=== PATIENT | male | born 1945 | race Hispanic/Latino ===

== ENCOUNTER 2017-05-17 08:16 | Day surgery (SDC) | payer MEDICARE ==
[2017-05-09 14:17] VITALS: BMI 23.6
[2017-05-17] MEDS ORDERED: Propofol 10 mg/ml Inj (20 ML) ONE (10:55)
[2017-05-17] MEDS ORDERED: Midazolam 2 MG/2 ML VIAL ONE ×2 (10:55→10:56)
[2017-05-17] MEDS ORDERED: Sodium Chloride 0.9% 1,000 ML IV SCH (11:00)
[2017-05-17 13:05] VITALS: BP 134/71; PULSE 72; RESP 16; TEMP 97.5; O2SAT 99
== END 2017-05-17 13:41 | disposition home or self-care (01) ==
LOC: ENDO 08:16
PROVIDERS: ATTEND Internal Medicine Gastroenterology
DX: K63.5 Polyp of colon (principal); K62.1 Rectal polyp; K57.30 Diverticulosis of large intestine without perforation or abscess without bleeding; K64.8 Other hemorrhoids; I10 Essential (primary) hypertension
CPT/HCPCS: 45380; 45381; 45385; 88305; J2250; J2704; J7040 ×2

== ENCOUNTER 2018-05-16 21:19 | Emergency (ER) | payer MEDICARE ==
[2018-05-16 21:47] VITALS: BMI 23.3
[2018-05-16 21:51] VITALS: PULSE 99
[2018-05-16] MEDS ORDERED: Sodium Chloride 0.9% 1,000 ML IV STA (22:26)
--- NOTE | 2018-05-16 22:30 | ED PDOC ---
Arrival/HPI - General Chief Complaint: Abdominal Pain Time Seen by Provider: 05/16/18 22:09 Historian: Patient - History of Present Illness Narrative History of Present Illness (Text): 05/16/18 22:27 73 year old male, with past medical history of hypertension, presents to the ED for evaluation of diffuse abdominal pain, diarrhea, vomiting, fever, chills and headache since 3 pm. Patient informs sudden onset of symptoms this afternoon associated with 3 episodes of diarrhea and 4 episodes of vomiting. Patient informs a low grade fever at home with Tmax of 99.1 F. Patient denies any chest pain, shortness of breath, dizziness, neck pain, back pain or any other complaints. States that abdominal pain is now completely resolved. Time/Duration: 4-6 hours Symptom Onset: Sudden Symptom Course: Unchanged Activities at Onset: Light Context: Home Past Medical History - Provider Review Nursing Documentation Reviewed: Yes - Infectious Disease Hx of Infectious Diseases: None - Cardiac Hx Cardiac Disorders: Yes Hx Hypertension: Yes - Pulmonary Hx Respiratory Disorders: No - Neurological Hx Neurological Disorder: No - HEENT Hx HEENT Disorder: No - Renal Hx Renal Disorder: No - Endocrine/Metabolic Hx Endocrine Disorders: No - Hematological/Oncological Hx Blood Disorders: No - Integumentary Hx Dermatological Disorder: No - Musculoskeletal/Rheumatological Hx Musculoskeletal Disorders: No - Gastrointestinal Hx Gastrointestinal Disorders: No - Genitourinary/Gynecological Hx Genitourinary Disorders: No - Psychiatric Hx Psychophysiologic Disorder: No Hx Substance Use: No - Surgical History Hx Cholecystectomy: Yes - Anesthesia Hx Anesthesia Reactions: No Hx Malignant Hyperthermia: No Family/Social History - Physician Review Nursing Documentation Reviewed: Yes Family/Social History: No Known Family HX Smoking Status: Never Smoked Hx Alcohol Use: No Hx Substance Use: No Allergies/Home Meds Allergies/Adverse Reactions: Allergies No Known Allergies Allergy (Verified 05/16/18 21:47) Home Medications: Home Meds Medication Instructions Recorded Confirmed Amlodipine Besylate/Benazepril 1 tab PO DAILY 05/16/18 05/16/18 [Amlodipine-Benazepril 5-10 mg] Aspirin [Ecotrin] 81 mg PO DAILY 05/16/18 05/16/18 amLODIPine [Norvasc] 5 mg PO DAILY 05/16/18 05/16/18 Review of Systems - Physician Review All systems were reviewed & negative as marked: Yes - Review of Systems Respiratory: absent: SOB Gastrointestinal: Abdominal Pain, Diarrhea, Nausea, Vomiting Musculoskeletal: absent: Back Pain Neurological: Headache Physical Exam - Physical Exam Narrative Physical Exam (Text): 05/16/18 22:31 Constitutional: No acute distress. Head: Normocephalic. Atraumatic. Eyes: PERRL. ENT: Dry mucous membranes. Neck: Supple. Cardiovascular: Regular rate. Chest: No tenderness. Respiratory: Clear to auscultation bilaterally. GI: Soft. Nontender. Nondistended. Back: No CVA tenderness. Musculoskeletal: No tenderness or swelling of extremities. Skin: No rash. Neurologic: Alert, no focal deficit. Vital Signs Reviewed: Yes Vital Signs Temp Pulse Resp BP Pulse Ox 05/16/18 21:50 97.3 F L 99 H 19 173/88 H 99 Temperature: Afebrile Blood Pressure: Hypertensive Pulse: Regular Respiratory Rate: Normal Appearance: Positive for: Well-Appearing, Non-Toxic, Comfortable Pain Distress: None Mental Status: Positive for: Alert and Oriented X 3 Medical Decision Making ED Course and Treatment: 05/16/18 22:31 Impression: 73 year old male presents to the ED for evaluation of abdominal pain, nausea, vomiting and diarrhea. Plan: -- Labs -- IV Fluids -- Influenza A B -- Reassess and disposition Prior Visits: Notes and results from previous visits were reviewed. Progress Notes: 05/16/18 22:32 Patient's was recently seen in the ED for similar symptoms and was noted to have mildly elevated WBC and CT abdomen positive for mesenteric adenitis. Patient reports sick contact with , who is currently asymptomatic. 05/16/18 23:19 Patient states he feels better. Labs unremarakble, mild leukcoytosis, influenza negative, creatinine baseline. Advised PO fluids, Zofran PRN, analgesics, f/u PMD. Instructed to return to ED for worsening pain, focal abdominal pain, intractible vomiting, or any other problem. - Medication Orders Current Medication Orders: Sodium Chloride (Sodium Chloride 0.9%) 1,000 mls @ 999 mls/hr IV .Q1H1M STA Stop: 05/16/18 23:26 - Scribe Statement The provider has reviewed the documentation as recorded by the Scribe Nano Duenas. All medical record entries made by the Scribe were at my direction and personally dictated by me. I have reviewed the chart and agree that the record accurately reflects my personal performance of the history, physical exam, medical decision making, and the department course for this patient. I have also personally directed, reviewed, and agree with the discharge instructions and disposition. Disposition/Present on Arrival - Present on Arrival Any Indicators Present on Arrival: No History of DVT/PE: No History of Uncontrolled Diabetes: No Urinary Catheter: No History of Decub. Ulcer: No History Surgical Site Infection Following: None - Disposition Have Diagnosis and Disposition been Completed?: Yes Diagnosis: Vomiting, Diarrhea Disposition: HOME/ ROUTINE Disposition Time: 23:20 Patient Plan: Discharge Condition: STABLE Discharge Instructions (ExitCare): Viral Gastroenteritis Prescriptions: Ondansetron ODT [Zofran ODT] 4 mg PO Q8 #12 odt Referrals: Rex Batista MD [Primary Care Provider] - Follow up with primary Forms: [facility] (Faroese)
[2018-05-16 22:52] VITALS: BP 157/81; RESP 18; TEMP 98.4; O2SAT 100
[2018-05-16 22:57] LABS: BASO # 0.01 K/mm3 (0.0-2.0); BASO % 0.1 % (0.0-3.0); EOS % 0.3 % (1.5-5.0); GRAN % 95.6 % (50.0-68.0); LYMPH # 0.3 (1.2-3.4); LYMPH % 2.4 % (22.0-35.0); MEAN CELL VOLUME 94.7 fl (80.0-105.0); MEAN CORPUSCULAR HEMOGLOBIN 32.5 pg (25.0-35.0); MEAN CORPUSCULAR HGB CONC 34.3 g/dl (31.0-37.0); MEAN PLATELET VOLUME 9.7 fl (7.0-11.0); MONO # 0.2 (0.1-0.6); MONO % 1.6 % (1.0-6.0); PLATELET COUNT 189 10^3/uL (120.0-450.0); RBC 4.93 10^6/uL (3.5-6.1); RED CELL DISTRIBUTION WIDTH 12.3 % (11.5-14.5); WHITE BLOOD COUNT 11.9 10^3/uL (4.5-11.0)
[2018-05-16 23:13] LABS: ALB/GLOB RATIO 1.2 (1.1-1.8); ALBUMIN 4.6 g/dL (3.0-4.8); CALCIUM 9.8 mg/dL (8.4-10.5)
[2018-05-16 23:34] LABS: BAND 6 % (0-2); LYMPHOCYTE 1 % (22.0-35.0); MONOCYTE 1 % (1.0-6.0); NEUTROPHIL 92 % (50.0-70.0); PLATELET ESTIMATE NORMAL (NORMAL)
--- NOTE | 2018-05-17 12:02 | CARD ---
APPROVED REPORT Date of service: 05/16/2018 EKG Measurement Heart [id number] <Conclusion> Sinus rhythm with premature atrial complexes Possible Left atrial enlargement Borderline ECG
== END 2018-05-16 23:56 | disposition home or self-care (01) ==
LOC: ED 21:19
DX: R11.10 Vomiting, unspecified (principal); R19.7 Diarrhea, unspecified; I10 Essential (primary) hypertension
CPT/HCPCS: 80053; 83690; 85025; 87804; 93005; 96374; 99284; J1885; J7030

== ENCOUNTER 2018-05-29 08:21 | Outpatient (CLI) | payer MEDICARE | END 2018-05-29 08:22 | disposition home or self-care (01) | LOC: LAB 08:21 ==

== ENCOUNTER 2018-09-11 08:23 | Outpatient (CLI) | payer MEDICARE | END 2018-09-11 08:24 | disposition home or self-care (01) | LOC: LAB 08:23 ==